=== PATIENT | male | born 1995 | race Caucasian/White ===

== ENCOUNTER 2017-03-14 15:42 | Emergency (ER) | payer BC ==
--- NOTE | 2017-03-14 16:08 | UC ---
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 No fever. Hx varicocele on the left testicle. No dysuria, no penile discharge. - History of Current Complaint Chief Complaint: UCGU Stated Complaint: TESTICULAR PAIN Time Seen by Provider: 03/14/17 15:44 Hx Obtained From: Patient Onset/Duration: Gradual Onset, Lasting Days, Still Present Timing: Constant Severity Initially: Moderate Severity Currently: Moderate Pain Intensity: 6 Pain Scale Used: 0-10 Numeric Location: Testicle Radiates to: no radiation Character: Sharp Aggravating Factor(s): Palpation Alleviating Factor(s): Nothing Associated Signs And Symptoms: Negative: Fever, Dysuria, Rectal Pain, Penile Swelling, Penile Discharge - Risk Factors Testicular Torsion: Negative - Allergies/Home Medications Allergies/Adverse Reactions: Allergies Allergy/AdvReac Type Severity Reaction Status Date / Time Ziprasidone [From Geodon] Allergy Severe dystonic Verified 03/14/17 15:55 reaction Azithromycin [From Zithromax] Allergy Intermediate Vomiting Verified 03/14/17 15 :55 Risperidone Allergy Unknown Unknown Verified 03/14/17 15:55 Reaction Details Aloe Allergy Unknown Verified 03/14/17 15:55 Reaction Details Atomoxetine [From Strattera] Allergy Unknown Verified 03/14/17 15:55 Reaction Details Buprenorphine [From Butrans] Allergy Hallucinati Verified 03/14/17 15:55 ons Cephalexin [From Keflex] Allergy Itching Verified 03/14/17 15:55 Cyprodenate Allergy Unknown Verified 03/14/17 15:55 Reaction Details Cyproheptadine Allergy Unknown Verified 03/14/17 15:55 [From Periactin] Reaction Details Formaldehyde Allergy Unknown Verified 03/14/17 15:55 Reaction Details Menthol Allergy Unknown Verified 03/14/17 15:55 Reaction Details Metoclopramide [From Reglan] Allergy Unknown Verified 03/14/17 15:55 Reaction Details Surgical Lubricant Allergy Unknown Verified 03/14/17 15:55 Reaction Details Tamsulosin [From Flomax] Allergy See Comment Verified 03/14/17 15:55 CHLORAHEXIDINE Allergy Intermediate Rash Uncoded 03/14/17 15:55 buprenorphine Allergy Unknown Uncoded 03/14/17 15:55 Reaction Details FORMALDAHYDE Allergy RASH, Uncoded 03/14/17 15:55 THROAT SWELLING,NASAL CONGESTION Home Medications: Home Medications Hydrocodone-Acetaminophen [Hydrocodone Bitartrate/AC 7.5-300 mg] 1.5 tab Q4H PRN MDD 5 03/14/17 [History Confirmed 03/14/17] l-Methylfolate W/ Algae-Vitami [Metanx] 1 cap PO BID 03/14/17 [History Confirmed 03/14/17] PMH/Surg Hx/FS Hx/Imm Hx Previously Healthy: No - Ehler's Danlos Endocrine History Of: Denies: Diabetes, Thyroid Disease Cardiovascular History Of: Denies: Cardiac Disorders, Hypertension, Pacemaker/ICD Respiratory History Of: Reports: Asthma Denies: COPD GI/ History Of: Denies: Ulcer, Renal Disease Psychological History Of: Reports: Anxiety - Surgical History Surgical History: Yes Surgery Procedure, Year, and Place: bilaterl achilles tendon lengthening, right distal radius and ulna fx, dental trauma wisdom tooth extraction. GANGLION CYSTECTOMY. Right hip arthroscopy and right hip open surgery - Family History Known Family History: Positive: Cardiac Disease, Hypertension, Diabetes - Social History Lives: With Family Alcohol Use: None Substance Use Type: None, Prescribed Smoking Status (MU): Never Smoked Tobacco Have You Smoked in the Last Year: No - Immunization History Most Recent Influenza Vaccination: 10/2016 Review of Systems Constitutional: Negative Skin: Negative Eyes: Negative ENT: Negative Respiratory: Negative Cardiovascular: Negative Gastrointestinal: Negative Genitourinary: Negative, Other - testicular pain Motor: Negative Neurovascular: Negative Musculoskeletal: Negative Neurological: Negative Psychological: Negative All Other Systems Reviewed And Are Negative: Yes Physical Exam Triage Information Reviewed: Yes Appearance: Well-Appearing, Well-Nourished, Pain Distress Vital Signs: Initial Vital Signs Temp 98.8 F 03/14/17 15:50 Pulse 89 03/14/17 15:50 Resp 17 03/14/17 15:50 BP 121/75 03/14/17 15:50 Pulse Ox 100 03/14/17 15:50 Vital Signs Reviewed: Yes Eyes: Positive: Conjunctiva Clear ENT: Positive: Normal ENT inspection Neck: Positive: Supple Respiratory: Positive: No respiratory distress Cardiovascular: Positive: RRR, Pulses Normal, Brisk Capillary Refill Abdomen Description: Positive: Nontender, Soft, Other: - : nl uncirc male, varicocele left testicle, pain epididymis right testicle. No masses, no scrotal swelling. Negative: Distended, Guarding Bowel Sounds: Positive: Present Musculoskeletal: Positive: Strength Intact, ROM Intact Neurological: Positive: Alert, Muscle Tone Normal Psychological Exam: Normal Skin Exam: Normal Complaint Male Course/Dx - Differential Dx/Diagnosis Differential Diagnosis/HQI/PQRI: Epididymitis, Prostatitis, Testicular Torsion Provider Diagnoses: testicular pain - Physician Notifications Time Discussed With Above Provider: 16:25 - JUAN JOSE Connor at [facility] Instructed by Provider To: MD Will See In ED - father will drive pt by private car, so AMA Discharge - Discharge Plan Condition: Stable Disposition: AGAINST MEDICAL ADVICE Referrals: Latosha Wen MD [Primary Care Provider] -
[2017-03-14 16:30] VITALS: BP 111/73
== END 2017-03-14 16:31 | disposition left against medical advice (07) ==
LOC: UCCORT 15:42
DX: N50.811 Right testicular pain (principal); Q79.6 Ehlers-Danlos syndromes; J45.909 Unspecified asthma, uncomplicated; F41.9 Anxiety disorder, unspecified; Z88.1 Allergy status to other antibiotic agents; Z88.8 Allergy status to other drugs, medicaments and biological substances
CPT/HCPCS: 99212; G0463

== ENCOUNTER 2018-07-24 16:54 | Emergency (ER) | payer BC ==
[2018-07-24 17:47] VITALS: BP 127/67
--- NOTE | 2018-07-24 17:59 | UC ---
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 He routinely has significant pain after these injections and comes to this site for torodol injection. previous records reviewed and are c/w this history. here w/ his Mom. H/o megan danlos - History of Current Complaint Chief Complaint: UCLowerExtremity Stated Complaint: LEFT HIP PAIN Time Seen by Provider: 07/24/18 17:57 Pain Intensity: 8 - Allergies/Home Medications Allergies/Adverse Reactions: Allergies Allergy/AdvReac Type Severity Reaction Status Date / Time tamsulosin [From Flomax] Allergy Severe dystonia Verified 07/24/18 18:01 of jaw ziprasidone [From Geodon] Allergy Severe dystonic Verified 07/24/18 18:01 reaction cephalexin [From Keflex] Allergy Mild Itching Verified 07/24/18 18:01 atomoxetine [From Strattera] Allergy Unknown unknown Verified 07/24/18 18:01 reaction cyprodenate Allergy Unknown unknown Verified 07/24/18 18:01 reaction cyproheptadine Allergy Unknown unknown Verified 07/24/18 18:01 [From Periactin] reaction menthol Allergy Unknown unknown Verified 07/24/18 18:01 reaction metoclopramide [From Reglan] Allergy Unknown unknown Verified 07/24/18 18:01 reaction risperidone Allergy Unknown Unknown Verified 07/24/18 18:01 Reaction Details surgical lubricant Allergy Unknown Verified 07/24/18 18:01 [From Surgilube] Reaction Details azithromycin [From Zithromax] AdvReac Vomiting Verified 07/24/18 18:01 buprenorphine [From Butrans] AdvReac Hallucinati Verified 07/24/18 18:01 ons CHLORAHEXIDINE Allergy Intermediate Rash Uncoded 07/24/18 18:01 FORMALDAHYDE Allergy RASH, Uncoded 07/24/18 18:01 THROAT SWELLING,NASAL CONGESTION Home Medications: Home Medications Codeine TAB* [Codeine Tab*] 60 mg PO QID PRN 07/24/18 [History Confirmed ] Copper Gluconate [Copper] 0.5 tab DAILY 07/24/18 [History Confirmed 07/24/18] Dicyclomine CAP* [Bentyl CAP*] 10 mg PO BID PRN 07/24/18 [History Confirmed 06/03] Lactobacil 2-S.thermo-Bifido 1 [Vsl#3 Packet] 1 each PO ONCE 07/24/18 [History Confirmed 07/24/18] Sucralfate TAB* [Carafate*] 1 gm PO QID 07/24/18 [History Confirmed 07/24/18] Tramadol ER(NF) [Ultram HCl ER(NF)] 100 mg PO DAILY 07/24/18 [History Confirmed 07/24/18] Yeast,Dried (S. Cerevisiae) [Roper's Yeast] 500 mg PO TID 07/24/18 [History Confirmed 07/24/18] Zinc Amino Acid Chelate [Zinc Chelated] 22.5 mg PO BID 07/24/18 [History Confirmed 07/24/18] PMH/Surg Hx/FS Hx/Imm Hx Previously Healthy: Yes Psychological History: Anxiety - Surgical History Surgical History: Yes Surgery Procedure, Year, and Place: bilaterl achilles tendon lengthening , right distal radius and ulna fx, dental trauma wisdom tooth extraction. GANGLION CYSTECTOMY. Right hip arthroscopy and right hip open surgery; LEFT HIP ARTHROSCOPY 2016, left hip labrum reconstruction and femoral head arthroplasty 05/23/17 - Family History Known Family History: Positive: Cardiac Disease, Hypertension, Diabetes - Social History Alcohol Use: None Substance Use Type: Prescribed Smoking Status (MU): Never Smoked Tobacco Have You Smoked in the Last Year: No - Immunization History Most Recent Influenza Vaccination: 10/2016 Review of Systems Constitutional: Negative Skin: Negative Eyes: Negative ENT: Negative Respiratory: Negative Cardiovascular: Negative Gastrointestinal: Negative Genitourinary: Negative Motor: Negative Neurovascular: Negative Musculoskeletal: Arthralgia Neurological: Negative Psychological: Negative Is Patient Immunocompromised?: No All Other Systems Reviewed And Are Negative: Yes Physical Exam Triage Information Reviewed: Yes Appearance: Well-Nourished - very pleasant, Pain Distress Vital Signs: Initial Vital Signs Temp 99.2 F 07/24/18 17:39 Pulse 83 07/24/18 17:39 Resp 24 07/24/18 17:39 BP 127/67 07/24/18 17:39 Pulse Ox 100 07/24/18 17:39 Vital Signs Reviewed: Yes Eye Exam: Normal ENT Exam: Normal Respiratory Exam: Normal Respiratory: Positive: Lungs clear Cardiovascular Exam: Normal Cardiovascular: Positive: RRR, No Murmur, Pulses Normal, Brisk Capillary Refill Abdomen Description: Positive: Nontender, Soft Musculoskeletal: Positive: Other: - site of left hip injection w/ slight tenderness. there is no discharge or erythema. no bruising. cool to touch. Neurological Exam: Normal Psychological Exam: Normal Skin Exam: Normal Lower Extremity Course/Dx - Course Course Of Treatment: ketorolac 60mgs IM x 1 now. Pt tolerated well and resting after med hold. - Differential Dx/Diagnosis Differential Diagnosis/HQI/PQRI: Arthritis, Cellulitis Provider Diagnoses: left hip pain, megan danlos Discharge - Sign-Out/Discharge Documenting (check all that apply): Patient Departure All imaging exams completed and their final reports reviewed: No Studies - Discharge Plan Condition: Stable Disposition: HOME Patient Education Materials: Arthralgia (ED) Referrals: Zeenat Wilburn MD [Primary Care Provider] - Additional Instructions: Please make sure to follow up with Dr Chapman, especially if pain persists or worsens. - Billing Disposition and Condition Condition: STABLE Disposition: Home
[2018-07-24] MEDS ORDERED: Ketorolac INJ* 60 MG/2 ML VIAL IM ONE (18:12)
== END 2018-07-24 18:55 | disposition home or self-care (01) ==
LOC: UCCORT 16:54
DX: M25.552 Pain in left hip (principal); Q79.6 Ehlers-Danlos syndromes; Z88.8 Allergy status to other drugs, medicaments and biological substances; Z88.1 Allergy status to other antibiotic agents; Z96.642 Presence of left artificial hip joint
CPT/HCPCS: 96372; 99212; G0463; J1885